=== PATIENT | female | born 2000 | race Caucasian/White ===

== ENCOUNTER 2025-01-23 07:10 | Inpatient (IN) | payer OTHER ==
[2025-01-23] MEDS: ELECTROLYTE-148 SOLN 1,000 ML IV SCH (08:00)
[2025-01-23 08:35] VITALS: BMI 50.2
[2025-01-23 08:49] LABS: INR 0.99 (0.83-1.09); PROTHROMBIN TIME (PATIENT) 10.9 SEC (9.7-13.0)
[2025-01-23 08:52] LABS: ACTIVATED PTT 28.3 SECONDS (25.2-36.5)
[2025-01-23] MEDS: CITRIC ACID/SODIUM CITRATE 30 ML UNIT-DOSE CUP PO ONE (09:05)
[2025-01-23] MEDS ORDERED: ONDANSETRON 4 MG/2 ML VIAL IVPUSH PRN (09:49)
[2025-01-23] MEDS ORDERED: morphine SULFATE/PF 1 MG/2 ML (2cc Syringe - QUVA) ONE (09:56)
[2025-01-23] MEDS ORDERED: FENTANYL CITRATE/PF 50 MCG/ML VIAL ONE (09:56)
[2025-01-23] MEDS ORDERED: METHYLERGONOVINE MALEATE 0.2 MG/1 ML AMP IM PRN ×2 (11:20→13:03)
[2025-01-23] MEDS ORDERED: ONDANSETRON 4 MG/2 ML VIAL ONE (11:29)
[2025-01-23] MEDS ORDERED: OXYTOCIN 10 UNITS/ML VIAL ONE ×2 (11:42→12:17)
[2025-01-23] MEDS ORDERED: OXYTOCIN 20 UNITS in 0.9% NS 20 UNIT/1,000 ML INFUS.BAG IV ONE (13:49)
[2025-01-23] MEDS ORDERED: IBUPROFEN (CALDOLOR) 800 MG/200 ML PREMIX BAGS IVPB ONE (13:49)
[2025-01-23] MEDS: OXYTOCIN 20 UNITS in 0.9% NS 20 UNIT/1,000 ML INFUS.BAG IV SCH (13:51)
[2025-01-23] MEDS: IBUPROFEN (CALDOLOR) 800 MG/200 ML PREMIX BAGS IVPB ONE (13:52)
[2025-01-23] MEDS: MISOPROSTOL 200 MCG TABLET PR ONE (21:07)
[2025-01-23 21:10] VITALS: RESP 18
[2025-01-24] MEDS: SIMETHICONE 80 MG TAB.CHEW (FP) PO PRN (03:36)
[2025-01-24] MEDS: ACETAMINOPHEN 325 MG TABLET (FP) PO PRN (06:00)
[2025-01-24 06:59] LABS: ABSOLUTE IMMATURE GRANULOCYTES 0.07 x10^3/uL (0.0-0.031); BASOPHILS # 0.03 x10^3/uL (0.01-0.08); EOSINOPHIL % 0.5 % (0.7-5.8); EOSINOPHILS # 0.06 x10^3/uL (0.04-0.36); MCHC 33.0 g/dl (32.2-35.5); MEAN CELL VOLUME 86.4 fl (79.4-94.8); MEAN PLT VOLUME 9.6 fl (9.4-12.3); MONOCYTE # 0.86 x10^3/uL (0.24-0.86); MONOCYTE % 7.6 % (4.7-12.5); RDW 14.6 % (12.1-16.5)
[2025-01-24] MEDS: IBUPROFEN 600 MG TABLET (FP) PO PRN (08:23)
[2025-01-24] MEDS: FERROUS SO4 325 MG TABLET (FP) PO SCH (08:57)
[2025-01-24] MEDS: PRENATAL VITAMINS W/ FOLIC ACID TABLET (FP) PO SCH (08:57)
[2025-01-24] MEDS: DIPHTH,PERTUSS(ACELL),TET 0.5 ML DISP.SYRIN IM ONE (12:52)
[2025-01-24] MEDS ORDERED: BISACODYL 10 MG SUPP.RECT RC PRN (13:03)
[2025-01-26 07:10] LABS: ABSOLUTE IMMATURE GRANULOCYTES 0.03 x10^3/uL (0.0-0.031); BASOPHILS # 0.02 x10^3/uL (0.01-0.08); EOSINOPHIL % 2.4 % (0.7-5.8); EOSINOPHILS # 0.17 x10^3/uL (0.04-0.36); MCHC 32.3 g/dl (32.2-35.5); MEAN CELL VOLUME 88.6 fl (79.4-94.8); MEAN PLT VOLUME 9.9 fl (9.4-12.3); MONOCYTE # 0.57 x10^3/uL (0.24-0.86); MONOCYTE % 8.1 % (4.7-12.5); RDW 15.0 % (12.1-16.5)
[2025-01-26 09:11] VITALS: BP 114/70; PULSE 107; TEMP 98.4
== END 2025-01-26 12:28 | disposition home or self-care (01) | DRG 540 ==
LOC: JLDR 07:10 → J3W 15:00
PROVIDERS: ADMIT Obstetrics & Gynecology; ATTEND Obstetrics & Gynecology
PROC: 10D00Z1 Extraction of Products of Conception, Low, Open Approach (ICD-10-PCS; principal; 2025-01-23)
DX: O36.63X0 Maternal care for excessive fetal growth, third trimester, not applicable or unspecified (principal); Z3A.40 40 weeks gestation of pregnancy; Z37.0 Single live birth
CPT/HCPCS: 36415; 80053; 85025; 85610; 85730; 86780; 86850; 86900; 86901; 88307-TC; 90715; 94010